=== PATIENT | female | born 1945 | race Two or more races ===

== ENCOUNTER 2018-03-24 05:50 | Day surgery (SDC) | payer OTHER ==
[~2018-03-24 05:50] MED LIST: ATACAND HCT 161 EACH PO; LIPITOR20 MG; LOPRESSOR HCT1 EACH PO; NORVASC5 MG PO
== END 2018-03-24 15:00 | disposition home or self-care (01) ==
LOC: CIR.AMB 05:50
DX: D24.1 Benign neoplasm of right breast (principal)